=== PATIENT | female | born 1965 | race Caucasian/White ===

== ENCOUNTER 2020-05-20 03:15 | Inpatient (IN) ==
--- NOTE | 2020-05-20 03:44 | Emergency Department Note ---
History of Present Illness General Chief complaint: Chest Pain Stated complaint: CHEST PAIN,PAIN IN BACK Time Seen by Provider: 05/20/20 03:20 Source: patient Mode of arrival: ambulatory Limitations: no limitations History of Present Illness Provider complaint: Chest pain, upper abdominal pain Onset (ago): hour(s) 3 Location: chest and abdomen Radiation: back Severity: moderate Pain Consistency: + constant Maximum Pain Intensity: 8 Current Pain Intensity: 8 Quality: + constant Relieved By: + none Exacerbated By: + none Associated symptoms: no cough, no loss of appetite, no shortness of breath and no syncope Treatments prior to arrival: none This is a 54-year-old female presents the emergency department complaining of chest and upper abdominal pain that radiates into her back. Patient states she went to bed around 9:00 and felt her usual state of health, however at 1230 she awoke with a sudden pain. Patient states pain is been constant, did not change with any position. Patient states occasionally she feels the pain also radiate behind her left breast. She states she did take a couple baby aspirin that her brought her. She denies any recent illness, fevers chills, cough or cold symptoms. Patient states she is slightly nauseated from the pain, however denies any shortness of breath, dizziness/lightheadedness, or vomiting. Patient denies any recent change in bowel or bladder function, no lower extremity edema. Patient states she has no known medical problems and does not take any medication. Patient states her father young from colon cancer however her mother lived to be 92 with high blood pressure. Patient denies any recent known exposure to any sick contact including coronavirus. Patient denies any prior similar symptoms. Patient is postmenopausal. Pt seen during a time of high acuity and national emergency pandemic while wearing PPE. Home Medications Medication Instructions Recorded Confirmed Type cholecalciferol (vitamin D3) 125 mcg PO DAILY 05/20/20 05/20/20 History [Vitamin D3] hydrocodone-acetaminophen 1 - 2 tab PO .q4h- q6h PRN #15 tab 05/20/20 Rx zinc 50 mg PO DAILY 05/20/20 05/20/20 History Allergies Allergy/AdvReac Type Severity Reaction Status Date / Time No Known Allergies Allergy Verified 05/20/20 08:23 Past Med/Surg History Medical History (Updated 05/20/20 @ 23:42 by Puja Frey DO) No significant medical problems Surgical History (Updated 05/20/20 @ 13:48 by Abi Dias RN) Hx laparoscopic cholecystectomy (05/20/20) Laparoscopic Cholecystectomy Dr. Coto 05/20/2020 Hx of section Social History (System 05/20/20 @ 08:23 by Ivis Bridges) Smoking Status: Never smoker Do You Dip or Chew Tobacco: No; Hx Alcohol Use: No Hx Substance Use: No Preferred Language: Tongan Communication Ability: Effective Publishing Specialist Required: No Beliefs That Will Affect Care: None Current Living Situation: Spouse Other Information That Helps Us Care for You: No Feels Safe at Home: Yes Safety Concerns: Feels Safe At This Time Assistive Devices: None Review of Systems See HPI for pertinent positives & negatives. and A total of 10 systems reviewed and were otherwise negative Physical Exam Vital Signs Vital Signs - 24 hr 05/20/20 03:17 05/20/20 03:22 05/20/20 03:28 Temperature 36.2 C L Temperature Source Temporal Artery Scan Pulse Rate 109 H 95 H 82 Pulse Rhythm Regular Pulse Strength Normal Respiratory Rate 20 17 14 Respiratory Effort / Characteristics Non-Labored Respiratory Depth Normal Respiratory Pattern Regular Blood Pressure 144/84 H 130/61 Blood Pressure Mean 104 84 Blood Pressure Position Sitting Pulse Oximetry 98 Oxygen Delivery Method Room Air Sepsis Recent Fever Within 48 Hours No Sepsis New/Unexplained Change in Mental Status N/A Sepsis Action Taken by Nursing No Action Required 05/20/20 03:30 05/20/20 03:40 05/20/20 03:50 Temperature Temperature Source Pulse Rate 82 84 79 Pulse Rhythm Pulse Strength Respiratory Rate 14 14 14 Respiratory Effort / Characteristics Respiratory Depth Respiratory Pattern Blood Pressure Blood Pressure Mean Blood Pressure Position Pulse Oximetry Oxygen Delivery Method Sepsis Recent Fever Within 48 Hours Sepsis New/Unexplained Change in Mental Status Sepsis Action Taken by Nursing 05/20/20 04:00 05/20/20 04:10 05/20/20 04:32 Temperature Temperature Source Pulse Rate 77 81 91 H Pulse Rhythm Pulse Strength Respiratory Rate 14 18 15 Respiratory Effort / Characteristics Respiratory Depth Respiratory Pattern Blood Pressure 123/87 Blood Pressure Mean 99 Blood Pressure Position Pulse Oximetry Oxygen Delivery Method Sepsis Recent Fever Within 48 Hours Sepsis New/Unexplained Change in Mental Status Sepsis Action Taken by Nursing 05/20/20 04:40 05/20/20 04:50 05/20/20 05:00 Temperature Temperature Source Pulse Rate 85 80 83 Pulse Rhythm Pulse Strength Respiratory Rate 18 14 16 Respiratory Effort / Characteristics Respiratory Depth Respiratory Pattern Blood Pressure 151/85 H Blood Pressure Mean 107 Blood Pressure Position Pulse Oximetry Oxygen Delivery Method Sepsis Recent Fever Within 48 Hours Sepsis New/Unexplained Change in Mental Status Sepsis Action Taken by Nursing 05/20/20 05:10 05/20/20 05:20 05/20/20 05:30 Temperature Temperature Source Pulse Rate 75 85 81 Pulse Rhythm Pulse Strength Respiratory Rate 15 31 H 21 Respiratory Effort / Characteristics Respiratory Depth Respiratory Pattern Blood Pressure Blood Pressure Mean Blood Pressure Position Pulse Oximetry Oxygen Delivery Method Sepsis Recent Fever Within 48 Hours Sepsis New/Unexplained Change in Mental Status Sepsis Action Taken by Nursing GENERAL: alert, uncomfortable appearing, well nourished, no distress, non-toxic, tearful, anxious appearing EYE EXAM: normal conjunctiva, PERRL and EOM's grossly intact OROPHARYNX: no exudate, no erythema, lips, buccal mucosa, and tongue normal and mucous membranes are moist NECK: supple, no nuchal rigidity, no adenopathy, non-tender LUNGS: Clear to auscultation. Normal chest wall mechanics, no w/r/r HEART: no murmurs, S1 normal and S2 normal, pain with palpation along the lower aspect of the sternum ABDOMEN: abdomen soft, epigastric tenderness with palpation, normo-active bowel sounds, no masses, no rebound or guarding. BACK: Back is symmetrical on inspection and there is no deformity, no midline tenderness, no CVA tenderness. SKIN: no rashes and no bruising UPPER EXTREMITIES: upper extremities are grossly normal. FROM, nml pulses b/l. LOWER EXTREMITIES: No pitting edema. FROM, nml pulses b/l. NEURO EXAM: Normal sensorium, cranial nerves II-XII grossly intact, normal speech, no gross weakness of arms, no gross weakness of legs. Gross sensation intact. Course Course 0510: Patient updated on additional results. We will add ultrasound of the gallbladder. 05: Discussed with Rohit Verduzco PA-C with general surgery. 05: PA discussed with Dr. Coto, they will admit to their service. Administered Medications Hydrocodone Bitart/Acetaminophen (Hydrocodone/Acetamophen 5/325mg Tab) 1 tab PO Q4H PRN PRN Reason: Pain Stop: 06/03/20 13:02 Last Admin: 05/20/20 19:47 Dose: 1 tab Documented by: [id number] Lactated Ringer's (Lr) 1,000 mls @ 75 mls/hr IV .[id number] [facility] Stop: 06/19/20 07:59 Last Admin: 05/20/20 08:31 Dose: 75 mls/hr Documented by: [id number] Cefoxitin Sodium 2,000 mg/ (Dextrose) 60 mls @ 100 mls/hr IV Q6H [facility] Stop: 05/21/20 13:02 Last Infusion: 05/20/20 23:05 Dose: 0 mls/hr Documented by: [id number] Admin: 05/20/20 19:47 Dose: 100 mls/hr Documented by: [id number] Infusion: 05/20/20 14:22 Dose: 0 mls/hr Documented by: [id number] Admin: 05/20/20 13:46 Dose: 100 mls/hr Documented by: [id number] Discontinued Medications Bupivacaine HCl/Epinephrine Bitart (Bupivacaine/Epinephrine 0.5% Mpf 1:200,000 30 Ml Vial) Confirm Administered Dose 30 ml .ROUTE .STK-MED ONE Stop: 05/20/20 10:46 Last Admin: 05/20/20 11:55 Dose: 30 ml Documented by: [id number] Fentanyl Citrate (Fentanyl Citrate 100 Mcg/2 Ml Vial) 25 mcg IV Q5M PRN PRN Reason: PACU Use Only-Pain Stop: 05/20/20 18:08 Last Admin: 05/20/20 12:32 Dose: 25 mcg Documented by: [id number] Admin: 05/20/20 12:27 Dose: 25 mcg Documented by: [id number] Admin: 05/20/20 12:22 Dose: 25 mcg Documented by: [id number] Admin: 05/20/20 12:17 Dose: 25 mcg Documented by: [id number] Sodium Chloride (Nss 1000ml) 1,000 mls @ 125 mls/hr IV .Q8H [facility] Stop: 06/19/20 03:44 Last Infusion: 05/20/20 08:32 Dose: 0 mls/hr Documented by: [id number] Infusion: 05/20/20 08:25 Dose: 0 mls/hr Documented by: [id number] Admin: 05/20/20 03:52 Dose: 125 mls/hr Documented by: [id number] Acetaminophen (Ofirmev) 1,000 mg in 100 mls @ 400 mls/hr IV NOW STA Stop: 05/20/20 05:24 Last Infusion: 05/20/20 05:36 Dose: 0 mls/hr Documented by: [id number] Admin: 05/20/20 05:21 Dose: 400 mls/hr Documented by: [id number] Cefoxitin Sodium (Mefoxin) 2,000 mg in 60 mls @ 100 mls/hr IV NOW STA Stop: 05/20/20 06:09 Last Infusion: 05/20/20 07:02 Dose: 0 mls/hr Documented by: [id number] Admin: 05/20/20 06:26 Dose: 100 mls/hr Documented by: [id number] Cefoxitin Sodium 2,000 mg/ (Dextrose) 60 mls @ 100 mls/hr IV Q6H [facility]; Protocol Stop: 05/30/20 11:59 Last Admin: 05/20/20 13:28 Dose: Not Given Documented by: [id number] Promethazine HCl 12.5 mg/ (Sodium Chloride) 50.5 mls @ 204 mls/hr IV ONCE PRN PRN Reason: PACU Use Only-Nausea/Vomiting Stop: 05/20/20 18:08 Last Infusion: 05/20/20 12:59 Dose: 0 mls/hr Documented by: [id number] Admin: 05/20/20 12:44 Dose: 204 mls/hr Documented by: [id number] Ioversol (Optiray 320 125ml) 120 ml IV ONCE ONE Stop: 05/20/20 04:58 Last Admin: 05/20/20 04:57 Dose: 120 ml Documented by: [id number] Medical Decision Making Differential Diagnosis Differential diagnoses includes but is not limited to acute coronary syndrome, myocardial infarction, pericarditis, pulmonary embolus, aortic dissection, pneumonia, pneumothorax, musculoskeletal, shingles, esophageal. Medical Records Attestation: I reviewed the patient's medical records. Home Medications Current Medication List: was personally reviewed by me Laboratory Data Attestation: I reviewed the patient's lab results. Result diagrams: 05/20/20 03:28 05/20/20 03:28 Lab Results 05/20/20 05/20/20 05/20/20 Range/Units 03:28 03:28 03:28 WBC 15.17 H (4.8-10.8) K/uL RBC 4.70 (4.2-5.4) M/uL Hgb 14.5 (12.0-16.0) g/dL Hct 42.8 (37-47) % MCV 91.1 (80-100) fL MCH 30.9 (25-34) pg MCHC 33.9 (32-36) g/dL RDW Std Deviation 44.6 (36.4-46.3) fL RDW Coeff of Doreen 13.4 (11.5-14.5) % Plt Count 379 (130-400) K/uL MPV 10.3 (7.4-10.4) fL Immature Gran % (Auto) 0.2 % Neut % (Auto) 77.5 % Lymph % (Auto) 14.4 % [place] % (Auto) 6.9 % Eos % (Auto) 0.8 % Baso % (Auto) 0.2 % Neut # (Auto) 11.77 H (1.4-6.5) K/uL Lymph # (Auto) 2.18 (1.2-3.4) K/uL [place] # (Auto) 1.04 H (0.11-0.59) K/uL Eos # (Auto) 0.12 (0-0.5) K/uL Baso # (Auto) 0.03 (0-0.2) K/uL Immature Gran # (Auto) 0.03 H (0.00-0.02) K/uL PT 9.6 (9.0-12.0) Seconds INR 0.9 (0.9-1.1) Sodium 141 (136-145) mmol/L Potassium 4.1 (3.5-5.1) mmol/L Chloride 108 H (98-107) mmol/L Carbon Dioxide 25 (21-32) mmol/L Anion Gap 8.0 (3-11) BUN 14 (7-18) mg/dl Creatinine 0.76 (0.6-1.2) mg/dl Est Cr Clr Drug Dosing 88.0 ml/min Est GFR ( Amer) 103.1 Est GFR (Non-Af Amer) 88.9 BUN/Creatinine Ratio 18.4 (10-20) Glucose 113 H (70-99) mg/dl Calcium 8.8 (8.5-10.1) mg/dl Magnesium 1.9 (1.8-2.4) mg/dl Total Bilirubin 0.6 (0.2-1) mg/dl AST 165 H (15-37) U/L ALT 84 H (12-78) U/L Alkaline Phosphatase 121 H (45-117) U/L Troponin I < 0.015 (0-0.045) ng/ml NT-Pro-B Natriuret Pep 29 (0-900) pg/ml Total Protein 7.6 (6.4-8.2) gm/dl Albumin 3.7 (3.4-5.0) gm/dl Globulin 3.9 (2.5-4.0) gm/dl Albumin/Globulin Ratio 0.9 (0.9-2) Lipase 156 (73-393) U/L Imaging Data Radiologist's Impression: CTA chest: Cardiac pulsation artifact. No thoracic aortic aneurysm or dissection. No acute intramural hematoma. No CT evidence for pulmonary embolism. No acute parenchymal lung disease. No pathologic adenopathy within the chest. Radiologist: Leonid Dow MD CTA abdomen and pelvis with/without contrast: No abdominal aortic aneurysm or dissection. No acute intramural hematoma. Patent celiac, superior mesenteric and inferior mesenteric arteries. Patent bilateral main renal arteries. The bilateral common iliac, internal iliac, external iliac and common femoral arteries are patent. Solid organs unremarkable. Distended gallbladder with mild wall thickening but no calcified gallstones. Consider correlation with ultrasound, as clinically indicated. No dilated bowel. Unremarkable appendix. Mild colonic diverticulosis. No CT ev idence for diverticulitis. Radiologist: Leonid Dow MD ECG Data Attestation: I personally reviewed and interpreted this ECG as follows: Indication: + chest pain Rate (beats per minute): 93 Rhythm: + normal sinus ECG Intervals/blocks: + Normal QRS and + Normal QT ECG [place]: + Normal ECG ST segments: + Normal ST segments MDM Narrative This a 54-year-old female who presents due to abrupt onset of epigastric and [address] st pain that woke her up from sleep. Patient with no prior similar episodes, no past medical history and takes no medication. No recent dietary changes no history of trauma. No significant history of coronary artery disease or vascular etiology in the family. However due to abrupt onset of pain with her description of it radiating into the back, labs are drawn and sent and patient sent for CT imaging. CT suggestive of possible evolving cholecystitis and patient was found to have a leukocytosis and elevated LFTs although her bilirubin was normal. Due to these findings, case discussed with the on-call general surgery PA and an additional ultrasound the gallbladder was ordered. Eventually he did discuss this with his attending surgeon and they agreed to admit the patient to their service pending the ultrasound result and likely need for surgical intervention. Patient kept aware of all results and was in agreement with plan. Given otherwise reassuring findings and lack of other risk factors at this time I do not suspect ACS, PE, dissection, worsening aneurysm, mediastinitis, perforation, GI bleed, cardiac tamponade, pleural effusion, occult pneumonia, no evidence of bacteremia/sepsis, no evidence of a sending cholangitis. Patient was hemodynamically stable throughout. An order was placed for continuous cardiac monitoring. The monitor shows a rate of _90_ with _normal sinus_ rhythm. Impression & Plan Acute epigastric pain, Biliary colic, Atypical chest pain, Elevated LFTs Discharge Plan Visit Data Chief Complaint: Chest Pain Stated Complaint: CHEST PAIN,PAIN IN BACK ED Provider: Puja Frey Discharge Problem: Acute epigastric pain, Biliary colic, Atypical chest pain, Elevated LFTs Patient Disposition: Admitted As Inpatient Discharge Instructions Interventions: ED Discharge Assessment Last Done: 05/20/20 06:51
[2020-05-20] MEDS ORDERED: SODIUM CHLORIDE 0.9% 1000ML 1,000 ML IV SCH (03:45)
[2020-05-20 03:54] LABS: Basophils # (auto) 0.03 K/uL (0-0.2); Basophils % (auto) 0.2 %; Eosinophils # (auto) 0.12 K/uL (0-0.5); Eosinophils % (auto) 0.8 %; Hematocrit (blood only) 42.8 % (37-47); Hemoglobin 14.5 g/dL (12.0-16.0); Immature Granulocytes # (auto) 0.03 K/uL (0.00-0.02); Immature Granulocytes % (auto) 0.2 %; Lymphocytes # (auto) 2.18 K/uL (1.2-3.4); Lymphocytes % (auto) 14.4 %; Mean Corpuscular Hemoglobin 30.9 pg (25-34); Mean Corpuscular Hgb Conc 33.9 g/dL (32-36); Mean Corpuscular Volume 91.1 fL (80-100); Mean Platelet Volume 10.3 fL (7.4-10.4); Monocytes # (auto) 1.04 K/uL (0.11-0.59); Monocytes % (auto) 6.9 %; Neutrophils # (auto) 11.77 K/uL (1.4-6.5); Neutrophils % (auto) 77.5 %; Platelet Count 379 K/uL (130-400); RDW Coefficient of Variation 13.4 % (11.5-14.5); RDW Standard Deviation 44.6 fL (36.4-46.3); White Blood Count 15.17 K/uL (4.8-10.8)
[2020-05-20 04:03] LABS: Alanine Aminotransferase 84 U/L (12-78); Albumin Level 3.7 gm/dl (3.4-5.0); Aspartate Aminotransferase 165 U/L (15-37); BUN Creatinine Ratio 18.4 (10-20); Blood Urea Nitrogen 14 mg/dl (7-18); Calcium 8.8 mg/dl (8.5-10.1); Carbon Dioxide 25 mmol/L (21-32); Chloride 108 mmol/L (98-107); Est GFR (African American) 103.1; Est GFR (Non-African American) 88.9; Glucose 113 mg/dl (70-99); Lipase 156 U/L (73-393); Magnesium 1.9 mg/dl (1.8-2.4); Potassium 4.1 mmol/L (3.5-5.1); Sodium 141 mmol/L (136-145)
[2020-05-20 04:07] LABS: INR 0.9 (0.9-1.1); Prothrombin Time 9.6 Seconds (9.0-12.0)
[2020-05-20 04:09] LABS: Albumin Globulin Ratio 0.9 (0.9-2); Alkaline Phosphatase 121 U/L (45-117); Bilirubin,Total 0.6 mg/dl (0.2-1); Globulin 3.9 gm/dl (2.5-4.0); NT Pro B Type Natriuretic Pept 29 pg/ml (0-900); Total Protein 7.6 gm/dl (6.4-8.2); Troponin I < 0.015 ng/ml (0-0.045)
[2020-05-20] MEDS ORDERED: OPTIRAY 320 125ml IV ONE (04:57)
[2020-05-20] MEDS ORDERED: ACETAMINOPHEN 1,000 MG/100 ML VIAL IV STA (05:10)
[2020-05-20] MEDS ORDERED: cefOXitin 2,000 MG/60 ML BAG IV STA (05:34)
--- NOTE | 2020-05-20 05:44 | History & Physical Report ---
Date of Service May 20, 2020 Assessment & Plan (1) Biliary colic: Due to the patient's symptoms as well as CT scan findings she will be admitted to the hospital only proceed in the following manner We will keep the patient n.p.o. We will provide antiemetics We will provide analgesics Antibiotics in the form of cefoxitin will be administered Emergency room physician has ordered a follow-up ultrasound which we will follow for the results Follow for the results of patient's Covid test I discussed case with Dr. Coto my attending physician and will tentatively plan on performing a cholecystectomy later today. I discussed this with the patient and she agrees to proceed We will use SCDs for DVT prevention avoid chemical means in anticipation of surgery As above. feeling somewhat better but still with epigastric pain. US reviewed . c/w acute cholecystitis. Discussed her options as well as the risks of cholecystectomy. We discussed bleeding, infection, bile leaks or injury to bile ducts, injury to other structures, DVT, PE, WA, CVA etc. Following this I answered all of her questions. We will proceed today with laparoscopic cholecystectomy. Like patient be a level 1 full code History of Present Illness Chief Complaint: Epigastric pain Primary Care Provider: Elvira Nugent MD This is a 54-year-old female with no significant past medical history. She was in her usual state of health when approximately midnight tonight she woke up with pain in the epigastric area that radiated to her back. Pain is subsequently shifted somewhat to the right upper quadrant. She did not have any nausea or vomiting. She denies any fevers, shakes, chills. She notes that she has never had this before. She notes the pain was alleviated somewhat with medicines administered in the emergency department and she did not note any provocative factors. She notes that her most recent meal was approximately 4:00 PM yesterday. She presented to the emergency department where twelve-lead EKG revealed normal sinus rhythm without any changes indicative of ischemia. She underwent a CT scan of the chest that did not show any evidence of aortic dissection or pulmonary embolism. CT scan of the abdomen showed the patient had a distended gallbladder with some thickening of the gallbladder wall. Laboratory data inc luding CBC were white blood cell count was 15,000. Her hemoglobin, hematocrit, and platelet count were all noted to be within normal range. Coagulation studies were noted to be normal. Chemistry profile showed sodium and potassium were normal. Her BUN and creatinine were also noted to be normal. Magnesium was normal. Patient's bilirubin was not elevated. Her LFTs including her AST and ALT were elevated with levels of 165 and 84 respectively. Her alkaline phosphatase was elevated at 121. Lipase is in the normal range. Her troponin was not elevated. A Covid test has been ordered and is pending. Patient says she is quite active in her day-to-day life. She says that she can easily negotiate steps and inclines without chest pain or shortness of breath. She has no other significant health problems and takes no medicines and is a lifetime non-smoker. She has not had any changes in her appetite has not had any weight loss recently. At the time of my exam she is resting comfortably in bed in no distress. Allergies Allergy/AdvReac Type Severity Reaction Status Date / Time No Known Allergies Allergy Verified 05/20/20 08:23 Home Medications Medication Instructions Recorded Confirmed Type cholecalciferol (vitamin D3) 125 mcg PO DAILY 05/20/20 05/20/20 History [Vitamin D3] zinc 50 mg PO DAILY 05/20/20 05/20/20 History Past Med/Surg History Social History (System 05/20/20 @ 08:23 by Ivis Bridges) Smoking Status: Never smoker Do You Dip or Chew Tobacco: No; Hx Alcohol Use: No Hx Substance Use: No Preferred Language: Yi Communication Ability: Effective Wood Cabinet Finisher Required: No Beliefs That Will Affect Care: None Current Living Situation: Spouse Other Information That Helps Us Care for You: No Feels Safe at Home: Yes Safety Concerns: Feels Safe At This Time Assistive Devices: Glasses Review of Systems Constitutional: no fever and no chills Ear, Nose, Mouth, Throat: no ear pain Respiratory: no cough and no dyspnea Cardiovascular: no chest pain Gastrointestinal: + abdominal pain; no nausea, no vomiting, no dysphagia and no diarrhea/loose stools Genitourinary: no dysuria Musculoskeletal: + back pain (Back pain due to radiation from the epigastrium) Integumentary: no rash Neurologic: no localized weakness Physical Exam Constitutional: well developed and well nourished; no acute distress Eyes: No scleral jaundice ENMT: Ears: no hearing impairment Neck: trachea midline Respiratory: normal respiratory effort, lungs clear to auscultation Cardiovascular: Rate/Rhythm: regular rate and regular rhythm Gastrointestinal (Abdomen): Abdomen is soft and nondistended. Bowel sounds are present normoactive. There is no rebound tenderness or guarding. Pain is noted with palpation of the right upper quadrant with a positive Donahue sign. Musculoskeletal: No calf tenderness Skin: no rashes, warm and dry Neurologic: moves all extremities Psychiatric: A+Ox3, euthymic affect Results & Data Results & Data ([facility]) Vital Signs (Past 12 Hours) Vital Signs Temp Pulse Resp BP Pulse Ox 05/20/20 03:17 36.2 C L 109 H 20 144/84 H 98 Code Status & VTE Plan VTE Prophylaxis Plan VTE Prophylaxis will be ordered: Yes PG Care Time/CCT Total # of Minutes Spent Total Time Spent with Patient: Total time spent is greater than 50% in coordination of care (as documented) at patient's floor/unit and/or counseling patient: Coding Level of Care Code 18266 Initial Inpt Care Lvl 3 Diagnoses Biliary colic K80.50
--- NOTE | 2020-05-20 07:12 | Ultrasound Report ---
US gallbladder HISTORY: 54 years-old Female epigastric pain acute epigastric abdominal pain COMPARISON: CTA of the abdomen and pelvis of same day TECHNIQUE: Multiple real-time sonographic images of the abdominal right upper quadrant were obtained assessing grayscale appearance and color flow FINDINGS: Visualized pancreas is unremarkable. There is a 3.3 x 2.5 x 3.0 cm echogenic lesion noted involving t he posterior right hepatic lobe demonstrating no color flow. Liver is otherwise unremarkable. The gallbladder is distended. The gallbladder wall measures the upper limits of normal at 2.6 mm. Tin y shadowing cholelithiasis in the gallbladder fundus. No definite pericholecystic fluid. Sonographic Donahue sign was unable to be assessed secondary to patient recently being administered pain medicatio n. Common bile duct measures within the upper limits of normal at 6.8 mm. Imaged right kidney is unremarkable without hydronephrosis. IMPRESSION: 1. Distended gallbladder with cholelithiasis. The gallbladder wall measures within the upper limits o f normal and there is no definite pericholecystic fluid. Findings are suspicious however not definiti ve for acute cholecystitis. Findings could be correlated with nuclear medicine hepatobiliary scan. 2. Common bile duct measures within the upper limits of normal at 6.8 mm. 3. Echogenic 3.3 cm lesion of the right hepatic lobe is suggestive of a probable hemangioma. ACT 112: Negative or not required by law. The above report was generated using voice recognition software. It may contain grammatical, syntax o r spelling errors. Electronically signed by: Roque Escalante M.D. 05/20/2020 7:11 AM
--- NOTE | 2020-05-20 07:24 | CT Scan Report ---
CT angio chest dissec wo/w con, CT angio abdomen pelvis w con HISTORY: 54 years-old Female chest pain into back acute chest and abdominal pain COMPARISON: Right upper quadrant abdominal ultrasound of same day TECHNIQUE: CTA of the chest, abdomen and pelvis was obtained both with and without the use of 120 mL Optiray 320. 3-D coronal and sagittal MIPS were obtained from the axial data set and were submitted f or review. All measurements were obtained according to NASCET criteria. A dose lowering technique was used consistent with the principals of SOFIA. FINDINGS: CTA CHEST: Noncontrast scan demonstrates no mediastinal or intramural hematoma. The heart is normal in size with out pericardial effusion. There is no thoracic aortic aneurysm or dissection. Patency of the imaged g reat vessels. There is no significant atherosclerotic vascular disease. The opacified pulmonary arter y appears normal. CT CHEST: No large thyroid nodule or adenopathy. No pneumothorax, pleural effusion, overt pulmonary edema or ai rspace consolidation to suggest pneumonia. Central airways are patent. Soft tissues are unremarkable. No acute fracture. CTA ABDOMEN/PELVIS: No abdominal aortic aneurysm or dissection. There is no significant atherosclerotic vascular disease. The celiac trunk, superior and inferior mesenteric arteries are widely patent. Renal arteries are pa tent and appear normal. The common, internal and external iliac arteries are widely patent. The commo n and imaged superficial femoral and profunda femoris arteries are also patent. CT ABDOMEN/PELVIS: No pneumatosis or pneumoperitoneum. The spleen, pancreas and adrenal glands are unremarkable. Distend ed gallbladder with mild wall thickening. No definite biliary ductal dilation. 3.3 cm hypodense lesio n of the subserosal posterior right hepatic lobe with areas of mild nodular peripheral arterial enhan cement. Indeterminate hypodense 11 mm lesion of the right hepatic lobe. There is a lesion with macroscopic fat attenuation involving the superior pole left kidney measuring 8 mm suggestive of an angiomyolipoma. Kidneys are otherwise unremarkable. No hydronephrosis. Unremark able urinary bladder, uterus and adnexa. No bowel obstruction or bowel wall thickening. No ascites or mesenteric inflammation. Mild colonic diverticulosis without acute diverticulitis. The appendiceal t ip measures up to 7 mm however appears noninflamed. Unremarkable soft tissues. The bones appear intac t. No acute fracture. IMPRESSION: 1. Unremarkable CTA of the chest, abdomen and pelvis. 2. Distended gallbladder with mild wall thickening is suspicious for acute cholecystitis. Correlate w ith right upper quadrant abdominal ultrasound. 3. 3.3 cm lesion of the posterior right hepatic lobe may reflect a hemangioma. 4. 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 5. The appendiceal tip is minimally dilated at 7 mm however is noninflamed. 6. No bowel obstruction or bowel wall thickening. 7. Mild colonic diverticulosis. ACT 112: Negative or not required by law. The above report was generated using voice recognition software. It may contain grammatical, syntax o r spelling errors. Electronically signed by: Roque Escalante M.D. 05/20/2020 7:23 AM
[2020-05-20] MEDS ORDERED: MoRPHine SULFATE 2 MG/ML CARP IV PRN (07:32)
[2020-05-20] MEDS ORDERED: ONDANSETRON INJ 2 MG/ML 2 ML VIAL IV PRN ×2 (07:32→10:08)
[2020-05-20] MEDS: LACTATED RINGER'S 1,000 ML IV SCH (08:31)
[2020-05-20] MEDS ORDERED: MIDAZOLAM HCL 1 MG/ML 2ML VIAL ONE (09:17)
[2020-05-20] MEDS ORDERED: fentaNYL citrate 100 MCG/2 ML VIAL ONE (09:17)
--- NOTE | 2020-05-20 09:56 | Anesthesiology Consultation ---
Date of Service May 20, 2020 Assessment & Plan (1) Encounter for pre-operative examination: Chart Review Chart Review: Acceptable Risk for Surgery History Surgery Operation Date: 05/20/20 09:55 Proposed Procedures p Laparoscopic Cholecystectomy - Ian Coto, Height/Weight Height: 5 ft 5 in Weight: 73.6 kg Allergies Allergy/AdvReac Type Severity Reaction Status Date / Time No Known Allergies Allergy Verified 05/20/20 08:23 Medications Home Medications Medication Instructions Recorded Confirmed Last Taken cholecalciferol (vitamin D3) 125 mcg PO DAILY 05/20/20 05/20/20 05/19/20 [Vitamin D3] zinc 50 mg PO DAILY 05/20/20 05/20/20 05/19/20 Active Medications Generic Name Dose Route Start Last Admin Trade Name Freq PRN Reason Stop Dose Admin Lactated Ringer's 1,000 mls @ 75 mls/hr 05/20/20 08:00 05/20/20 08:31 Lr IV 06/19/20 07:59 75 mls/hr .[id number] MIGUEL A Administration Past Medical History Medical History (Updated 05/20/20 @ 10:06 by Ricky Escobedo MD) No significant medical problems Past Surgical History Surgical History (Updated 05/20/20 @ 10:04 by Ricky Escobedo MD) Hx of section Social History Smoking Status: Never smoker Do You Dip or Chew Tobacco: No Hx Alcohol Use: No Hx Substance Use: No Physical Exam Vital Signs Last Vital Signs Temp 36.9 C 05/20/20 06:58 Pulse 78 05/20/20 06:58 Resp 16 05/20/20 06:58 BP 131/68 05/20/20 06:58 Pulse Ox 99 05/20/20 06:58 Testing Laboratory Results 05/20/20 03:28 05/20/20 03:28 PT 9.6 Seconds (9.0-12.0) 05/20/20 03:28 INR 0.9 (0.9-1.1) 05/20/20 03:28 Electrocardiogram Date: 05/20/20 Findings: + NSR @ (93)
[2020-05-20] MEDS ORDERED: ATROPINE SULFATE 0.1 MG/ML 10ML SYR IV PRN (10:08)
[2020-05-20] MEDS ORDERED: KETOROLAC 30 MG/ML VIAL IV PRN (10:08)
[2020-05-20] MEDS ORDERED: PROMETHAZINE HCL 12.5 MG in SODIUM CHLORIDE 0.9% 50 ML IV PRN (10:08)
[2020-05-20] MEDS ORDERED: BUPIVACAINE/EPINEPHRINE 0.5% MPF 1:200,000 30 ML VIAL ONE (10:45)
[2020-05-20] MEDS ORDERED: PROPOFOL IV EMULSION 10 MG/ML 20 ML VIAL IV ONE (11:34)
[2020-05-20] MEDS ORDERED: GLYCOPYRROLATE 0.2 MG/ML VIAL ONE (11:34)
[2020-05-20] MEDS ORDERED: ONDANSETRON INJ 2 MG/ML 2 ML VIAL ONE (11:34)
[2020-05-20] MEDS ORDERED: NEOSTIGMINE METHYLSULFATE 5 MG/5 ML SYR ONE (11:34)
[2020-05-20] MEDS ORDERED: LIDOCAINE HCL 2% 2 ML VIAL/AMP(20MG/ML) INFIL ONE (11:34)
[2020-05-20] MEDS ORDERED: DEXAMETHASONE SOD INJ 4 MG/ML VIAL ONE (11:34)
[2020-05-20] MEDS ORDERED: ROCURONIUM BROMIDE 10 MG/ML 5 ML VIAL IV ONE (11:34)
[2020-05-20] MEDS ORDERED: cefOXitin 2,000 MG in DEXTROSE 5% 50 ML IV SCH (12:00)
--- NOTE | 2020-05-20 12:01 | Operative Report ---
PG Post Operative Report Pre & Post Diagnosis Operation Date: 05/20/20 09:55 Pre-Op Diagnosis: acute cholecystitis Post-Op Diagnosis: acute cholecystitis I identified the patient and participated in the time-out.: Yes Procedure Operation Date: 05/20/20 09:55 Actual Procedures p Laparoscopic Cholecystectomy(Not Applicable) - Ian Coto DO Surgeon Ian Coto DO Ethylene Oxide Panelboard Operator lucy Mishra Estimated Blood Loss 5 Findings Consistent with Post-Op Diagnosis Specimens gallbladder Description of Procedure After informed consent was obtained the patient was taken to the operating room and placed in the supine position. After successful intubation the abdomen was sterilely prepped and draped in usual fashion. A periumbilical incision was made with an 11 blade scalpel and carried down through the soft tissue using electrocautery. The anterior rectus fascia was opened using electrocautery and 2 #0 Vicryl stay sutures were placed. The peritoneum was elevated with hemostats and incised under direct vision using Metzenbaum scissors. A finger sweep was performed and a 12 mm Granados trocar was placed. The abdomen was insufflated to 18 mmHg. The laparoscope was inserted and the abdomen was examined in 360. No gross abnormalities were identified. A subxiphoid 5 mm port and 2 right upper quadrant 5 mm ports were placed under direct vision. The patient was placed in a reverse Trendelenburg position and slightly airplaned to the left. The gallbladder did appear acutely inflamed. The gallbladder was grasped and elevated superiorly and laterally. A [place] dissector was used to take down adhesions around the neck of the gallbladder. The cystic duct was identified and skeletonized. It was clipped twice proximally and once distally and transected using a laparoscopic scissor. In similar fashion the cystic artery was identified and skeletonized clipped and divided. The gallbladder was removed from the gallbladder fossa with electrocautery. It was placed into an Endo Catch bag. Thorough irrigation was performed. At the end of the procedure there was adequate hemostasis and no evidence of any bile leaks. A final look around the abdomen showed no other abnormalities. The gallbladder and trochars were all removed and the abdomen was desufflated. The fascia of the camera port was closed using 0 Vicryl in a [id number] fashion. All the wounds were irrigated and closed using 4-0 Monocryl. Marcaine was injected around them for postoperative analgesia and skin glue used as a dressing. The patient was awaken extubated and transferred to recovery in stable condition. My physician's clinical lab assistant was present throughout the entire case... helped with prepping the patient. With exposure for trocar placement, as well as retracted the gallbladder throughout the case and also assisted with wound closure and dressing placement. I attest to the content of the Intraoperative Record and any orders documented therein. Any exceptions are noted below.
[2020-05-20] MEDS ORDERED: KETOROLAC 30 MG/ML VIAL ONE (12:16)
[2020-05-20] MEDS: fentaNYL citrate 100 MCG/2 ML VIAL IV PRN ×4 (12:17→12:32)
--- NOTE | 2020-05-20 12:49 | Anesthesiology Progress Note ---
Date of Service May 20, 2020 Anesthesia Post Procedure Vital Signs Vital Signs: Temp Pulse Pulse Pulse Pulse Resp BP 05/20/20 12:45 36.6 C 68 14 05/20/20 12:35 70 15 05/20/20 12:25 74 16 05/20/20 12:15 70 15 05/20/20 12:08 36 C L 69 16 05/20/20 09:58 36.9 C 82 18 05/20/20 06:58 36.9 C 78 16 05/20/20 06:30 77 15 05/20/20 06:29 78 21 141/77 H 05/20/20 06:28 81 15 05/20/20 05:40 80 14 05/20/20 05:30 81 21 05/20/20 05:20 85 31 H 05/20/20 05:10 75 15 05/20/20 05:00 83 16 151/85 H 05/20/20 04:50 80 14 05/20/20 04:40 85 18 05/20/20 04:32 91 H 15 05/20/20 04:10 81 18 05/20/20 04:00 77 14 123/87 05/20/20 03:50 79 14 05/20/20 03:40 84 14 05/20/20 03:30 82 14 05/20/20 03:28 82 14 130/61 05/20/20 03:22 95 H 17 05/20/20 03:17 36.2 C L 109 H 20 144/84 H BP Pulse Ox 05/20/20 12:45 121/65 97 05/20/20 12:35 125/65 96 05/20/20 12:25 115/55 L 94 05/20/20 12:15 121/61 97 05/20/20 12:08 126/59 L 98 05/20/20 09:58 149/84 H 97 05/20/20 06:58 131/68 99 05/20/20 06:30 100 05/20/20 06:29 100 05/20/20 06:28 05/20/20 05:40 05/20/20 05:30 05/20/20 05:20 05/20/20 05:10 05/20/20 05:00 05/20/20 04:50 05/20/20 04:40 05/20/20 04:32 05/20/20 04:10 05/20/20 04:00 05/20/20 03:50 05/20/20 03:40 05/20/20 03:30 05/20/20 03:28 05/20/20 03:22 05/20/20 03:17 98 Pain Intensity Medial Chest: Pain Intensity: 0 Abdomen: Pain Intensity: 3 Transfer of Care Handoff Completed per policy Notes Mental Status: alert / awake / arousable Patient Amnestic to Procedure: Yes Nausea / Vomiting: adequately controlled Pain: adequately controlled Airway Patency, RR, SpO2: stable & adequate BP & HR: stable & adequate Hydration State: stable & adequate Anesthetic Complications: no major complications apparent
[2020-05-20] MEDS ORDERED: MoRPHine SULFATE 4 MG/ML 1 ML CARP\\VIAL IV PRN (13:03)
[2020-05-20] MEDS: cefOXitin 2,000 MG in DEXTROSE 5% 50 ML IV SCH ×2 (13:46→19:47)
[2020-05-20] MEDS: HYDROCODONE/ACETAMOPHEN 5/325MG TAB PO PRN (19:47)
[2020-05-21] MEDS: cefOXitin 2,000 MG in DEXTROSE 5% 50 ML IV SCH ×2 (01:22→07:33)
[2020-05-21] MEDS: LACTATED RINGER'S 1,000 ML IV SCH ×2 (01:24→15:52)
--- NOTE | 2020-05-21 06:06 | Electrocardiogram Report ---
Test Reason : Blood Pressure : / mmHG Vent. Rate : 093 BPM Atrial Rate : 093 BPM P-R Int : 154 ms QRS Dur : 084 ms QT Int : 344 ms P-R-T Axes : 025 067 051 degrees QTc Int : 427 ms Normal sinus rhythm Normal ECG No previous ECGs available Confirmed by Kevin Krause ([id number]) on 05/21/2020 6:06:44 AM Referred By: REFERRED SELF Confirmed By:Kevin Krause
[2020-05-21 06:26] LABS: Hematocrit (blood only) 37.3 % (37-47); Hemoglobin 12.3 g/dL (12.0-16.0); Mean Platelet Volume 10.1 fL (7.4-10.4); Platelet Count 305 K/uL (130-400); RDW Coefficient of Variation 13.5 % (11.5-14.5); RDW Standard Deviation 44.8 fL (36.4-46.3); White Blood Count 10.57 K/uL (4.8-10.8)
[2020-05-21 07:05] LABS: BUN Creatinine Ratio 12.3 (10-20); Bilirubin Direct 0.4 mg/dl (0-0.2); Calcium 8.5 mg/dl (8.5-10.1); Creatinine Clr Calc Pharmacy 93.6 ml/min; Est GFR (African American) 114.4; Est GFR (Non-African American) 98.7; Potassium 4.7 mmol/L (3.5-5.1)
[2020-05-21 07:08] LABS: Bilirubin,Total 1.2 mg/dl (0.2-1); Total Protein 6.2 gm/dl (6.4-8.2)
[2020-05-21] MEDS: HYDROCODONE/ACETAMOPHEN 5/325MG TAB PO PRN ×3 (07:39→17:40)
--- NOTE | 2020-05-21 09:05 | Surgery Progress Note ---
Date of Service May 21, 2020 Assessment & Plan (1) Biliary colic: POD 1 lap tika slight elevation of LFTs although clinically doing well will recheck later today as above. feeling well. recheck LFT's tomorrow...if go up will consult GI. Dr. Flores covering for weekend. Admission and Anticipated Discharge Date Admission Date: May 20, 2020 Subjective minimal pain, tolerating diet Physical Exam Gastrointestinal (Abdomen): Percussion/Palpation: abdomen soft Results & Data ([facility]) Vital Signs (Past 12 Hours) Vital Signs Temp Pulse Resp BP Pulse Ox 05/21/20 07:45 36.6 C 69 17 116/75 99 05/21/20 03:23 36.6 C 75 16 116/74 96 05/20/20 22:45 36.7 C 87 16 121/74 96 PG Care Time/CCT Total # of Minutes Spent Total Time Spent with Patient: Total time spent is greater than 50% in coordination of care (as documented) at patient's floor/unit and/or counseling patient: Coding Level of Care Code None Diagnoses Biliary colic K80.50
[2020-05-22] MEDS: HYDROCODONE/ACETAMOPHEN 5/325MG TAB PO PRN ×2 (03:08→10:07)
[2020-05-22] MEDS: LACTATED RINGER'S 1,000 ML IV SCH ×2 (05:37→11:27)
[2020-05-22 07:53] LABS: Albumin Level 2.8 gm/dl (3.4-5.0); Bilirubin Direct 0.1 mg/dl (0-0.2); Bilirubin,Total 0.3 mg/dl (0.2-1); Total Protein 5.8 gm/dl (6.4-8.2)
--- NOTE | 2020-05-22 10:28 | Surgery Progress Note ---
Date of Service May 22, 2020 Assessment & Plan (1) Biliary colic: POD#2 laparoscopic cholecystectomy Patient is feeling well LFT's are downtrending Plan to discharge to home today Follow up with Dr. Coto in 1-2 weeks Dispo instructions given Admission and Anticipated Discharge Date Admission Date: May 20, 2020 Supervising Physician Co-Signing Physician Notes Patient seen and examined, agree with above. Status post laparoscopic cholecystectomy with slight elevation in LFTs yesterday, now appear to be downtrending. She feels well, tolerated a diet. She is anxious to go home. On exam she is afebrile stable vitals. Abdomen soft, appropriately tender, incisions without infection. LFTs downtrending, T bili normal. Discharged home, follow-up with Dr. Coto in 10 to 14 days. Return precautions given, wound care instructions and activity restrictions reviewed. Subjective Patient states she is feeling well. Abdominal pain is tolerable. She is tolerating a diet. Physical Exam Physical Exam: awake/alert Gastrointestinal (Abdomen): Inspection/Auscultation: + abdominal surgical incision (c/d/i with dermabond overtop); abdomen not distended Percussion/Palpation: abdomen soft Results & Data ([facility]) Vital Signs (Past 12 Hours) Vital Signs Temp Pulse Resp BP Pulse Ox 05/22/20 08:17 36.7 C 72 17 113/75 97 05/21/20 22:56 36.6 C 74 16 104/67 98 PG Care Time/CCT Total # of Minutes Spent Total Time Spent with Patient: Total time spent is greater than 50% in coordination of care (as documented) at patient's floor/unit and/or counseling patient: Coding Level of Care Code None Diagnoses Biliary colic K80.50
--- NOTE | 2020-05-26 13:48 | Discharge Summary ---
Date of Service May 26, 2020 Principal Diagnosis acute cholecystitis Discharge Exam awake/alert Constitutional well developed and well nourished; no acute distress Respiratory normal respiratory effort Gastrointestinal (Abdomen) Inspection/Auscultation: + abdominal surgical incision (c/d/i with dermabond overtop); abdomen not distended Percussion/Palpation: abdomen soft Discharge Data Allergies Allergy/AdvReac Type Severity Reaction Status Date / Time No Known Allergies Allergy Verified 05/20/20 08:23 Consultations 05/20/20 05:31 ED Decision to Admit Stat Procedures Performed Operation Date: 05/20/20 09:55 Actual Procedures p Laparoscopic Cholecystectomy(Not Applicable) - Ian Coto, DO Ordered Studies 05/20/20 03:39 CT angio abdomen pelvis w con Urgent CT angio chest dissec wo/w con Urgent 05/20/20 05:10 US gallbladder Urgent Hospital Course (1) Acute cholecystitis: This is a 54y F who presented to the [facility] ED on 05/20/20 with complaints of epigastric abdominal pain that radiated to her back. Workup in the ED with a CT a/p revealed findings of a distended gallbladder with mild wall thickening victor m picious for acute cholecystitis. A RUQ US obtained thereafter showed a distended gallbladder with cholelithiasis with findings again suspicious for acute cholecystitis. Labs revealed WBC of 15 and LFT's showed Tb: 0.6, AST: 165, ALT: 84, AlkP: 121. Patient was admitted and kept NPO with IVF and started on IV abx with plans to take patient to the OR later that morning. On 2/ the patient went to the OR with Dr. Coto and underwent a laparoscopic cholecystectomy. The patient tolerated the procedure well, see op note for full details. The patient recovered in the PACU and was transferred to the med/surg unit in stable condition. Pain was controlled with prn IV and po medications. Diet was advanced from clears to regular without issue. On POD#1 patient's LFTs were elevated from admission to Tb: 1.2, AST: 684, ALT: 786, ALkP: 186. Decision was made to keep patient and repeat LFT's the following day with plans to discharge if downtrending or consult GI if uptrending. Patient continued to tolerate a regular diet and pain remained well controlled. Incisions c/d/i. POD#2 LFT's were downtrending and patient felt clinically well. Decision was made to discharge patient with follow up in surgery clinic within 1-2 weeks. Total Time Total Time Spent Total Time Spent (In Minutes): 15 Discharge Plan Discharge Items Patient Disposition: Home - Self-Care Reason For Visit: LYDIA Discharge Diagnosis: laparoscopic cholecystectomy Activity: Per Instructions section Lifting: No more than 10 pounds Bathing Comment: may shower starting 05/21/20; no soaking in tubs/pools Exercise/Sports: Wait until after follow-up appointment Driving/Machine Use: do not resume driving while taking narcotics for pain Non-emergency contact: Surgeon Call non-emergency contact if: you have any medication questions, your symptoms worsen, your pain is not controlled, your pain is worsening, your pain is unusual for you, your pain is concerning for you, you have a fever, your temperature is above 101.5, your wound has increased redness, your wound has increased drainage and your wound pain has increased Follow-up/Referrals: Ian Coto, [Surgeon] - 06/04/20 9:45 am (Please call to schedule follow up in clinic within 2 weeks) Elvira Calero MD [Primary Care Provider] - Diet: Regular Addtl Attending Provider Instructions: Pending Studies at Discharge: Yes Studies:: surgical pathology Stand-Alone [facility] Sm[facility] Cess[facility] Medications and DC Order Prescriptions: New hydrocodone-acetaminophen 5-325 mg tablet 1 - 2 tab PO .q4h- q6h PRN (Reason: pain, for initial therapy, max 6 tabs per day ) Qty: 15 RF: 0 Continued zinc 50 mg Tablet 50 mg PO DAILY RF: 0 cholecalciferol (vitamin D3) [Vitamin D3] 125 mcg (5,000 unit) Tablet 125 mcg PO DAILY RF: 0 Discharge Orders: Discharge Order (Routine); Ordered 05/22/20 Ordered By: Nasima Mishra Admission Data Admit Date/Time: 05/20/20 05:34 Attending Provider: Ian Coto Admit Provider: John Verduzco Primary Care Provider: Elvira Calero Other Providers: Ian Coto Other Interventions: Discharge Summary Assessment (RN) Last Done: 05/22/20 10:57 Coding Level of Care Code D/C Day Management <30 mins Diagnoses Acute cholecystitis K81.0
== END 2020-05-22 12:49 | disposition home or self-care (01) | DRG 419 ==
LOC: ED 03:15 → MERGE 05:34 → 3W 05:34